=== PATIENT | male | born 1975 | race Caucasian/White ===

== ENCOUNTER 2024-04-30 18:00 | Emergency (ER) | payer OTHER, SELFPAY ==
--- NOTE | ~2024-04-30 | XR_ITS ---
XR chest 2V DATE: 04/30/2024 18:52 INDICATION: Syncopal episode TECHNIQUE: PA and lateral chest COMPARISON: None FINDINGS: Normal heart size. No hilar or mediastinal enlargement is evident. There is mild right basilar infiltrate or atelectasis. The lungs otherwise are hyperinflated but merrill r of infiltrate or consolidation. No pleural effusion or pulmonary vascular congestion or pneumothorax is detected. IMPRESSION: Mild right basilar infiltrate or atelectasis Moderate bilateral hyperinflation suggesting obstructive airways disease Reviewed, dictated and finalized at location A. ENTARY SECRETARY
[2024-04-30 18:15] VITALS: BP 120/68; PULSE 55; RESP 13; TEMP 36.3; O2SAT 96
--- NOTE | 2024-04-30 18:27 | ECG_ITS ---
Rate 58 NM 159 QRSd 122 QT 428 QTc 422 P 144 QRS 68 T 74 Severity No Severity Defined SINUS BRADYCARDIA MODERATE INTRAVENTRICULAR CONDUCTION DELAY [110+ ms QRS DURATION] ABNORMAL RHYTHM ECG Compared to ECG 04/30/2024 15:41:04 Bradycardia, nonsinus now present Intraventricular conduction delay now present Atrial fibrillation no longer present Right bundle-branch block no longer present Electronically Signed On 05-01-2024 12:45:48 GEOGRAPHIC INFORMATION SCIENTIST by Ehsan LEA
[2024-04-30 18:36] LABS: Basophils Absolute Auto 0.1 K/mm3 (0.0-0.1); Eosinophils Absolute Auto 0.2 K/mm3 (0-0.3); Eosinophils Percent Auto 1.9 % (0-4.4); Hematocrit 43.8 % (42.0-52.0); Immature Granulocyte Absolute 0.06 K/mm3 (0.00-0.031); Immature Granulocyte Percent A 0.6 % (0-0.5); Lymphocytes Absolute Auto 2.69 K/mm3 (0.9-3.2); Lymphocytes Percent Auto 28.8 % (18.3-44.2); Mean Corpuscular HGB Conc 34.2 g/dl (32-36); Mean Corpuscular Hemoglobin 31.1 pg (26-34); Mean Corpuscular Volume 90.9 fl (80-100); Monocytes Absolute Auto 0.7 K/mm3 (0.1-0.6); Monocytes Percent Auto 7.2 % (2.6-8.5); Neutrophils Absolute Auto 5.7 K/mm3 (1.3-6.7); Neutrophils Percent Auto 60.5 % (45.5-73.1); Platelet Count Result 272 k/mm3 (150-375); Red Blood Count 4.82 M/mm3 (4.6-6.20); Red Cell Distribution Width 12.6 % (11.5-14.5); White Blood Count 9.3 K/mm3 (4.5-10.0)
[2024-04-30 18:46] LABS: Alanine Aminotransferase 22 U/L (6-50); Albumin Level 4.5 g/dL (3.5-5.1); Alkaline Phosphatase 62 U/L (38-126); Anion Gap 9 mmol/L (4-12); Aspartate Amino Transferase 23 U/L (17-59); Bilirubin,Total 0.6 mg/dL (0.2-1.3); Blood Urea Nitrogen 13 mg/dL (9-20); Carbon Dioxide 25 mmol/L (22-30); Chloride 103 mmol/L (98-107); Estimated CRCL calculation 111 ml/min; Estimated Glomerular Filt Rate > 60; Glucose 103 mg/dL (65-110); Potassium 3.4 mmol/L (3.4-5.0); Sodium 137 mmol/L (137-145)
--- NOTE | 2024-04-30 21:55 | ECG_ITS ---
Test Date: 2024-04-30 22:55:48 Measurements Intervals [place] Rate: 56 P: 69 SD: 170 QRS: 38 QRSD: 114 T: 56 QT: 428 QTc: 416 Interpretive Statements SINUS BRADYCARDIA MODERATE INTRAVENTRICULAR CONDUCTION DELAY [110+ ms QRS DURATION] No previous ECG available for comparison Electronically Signed On 05-01-2024 12:49:47 WARDROBE ATTENDANT by Ehsan Mckeon M.D.
[2024-04-30 22:11] VITALS: BP 145/75; PULSE 58; RESP 17; O2SAT 95
--- NOTE | 2024-04-30 22:13 | PC.NURSE ---
Patient states he feels much better upon assessment by this RN and ERP in room at this time. Patient denies any cp or sob.
[2024-04-30 22:27] LABS: NT Pro B Type Natriuretic Pept < 20 pg/mL (19.9-100); Troponin I < 0.012 ng/mL (0.000-0.034)
--- NOTE | 2024-04-30 22:35 | ED_ITS ---
HPI - General Adult General Chief complaint: Syncope Stated complaint: syncope Time Seen by Provider: 04/30/24 21:57 History of Present Illness HPI narrative: This is a 49-year-old male presenting after syncopal event. Patient was at a [employer] where he had been drinking alcohol. He then received bad news in regards to a house he was been trying to sell. He then felt nauseous and lightheaded and pale. He got to go outside and passed out when he stood. Patient says he has felt similar when he passed out as a child. At this time the patient is asymptomatic. No chest pain difficulty breathing or palpitations. Related Data Allergies Allergy/AdvReac Type Severity Reaction Status Date / Time No Known Allergies Allergy Verified 04/30/24 22:15 Exam Narrative: APPEARANCE: No apparent distress. Head: atraumatic. EYES: EOMI, NOSE: Atraumatic NECK: Trachea midline RESPIRATORY: No increased rate of breathing clear to auscultation CARDIOVASCULAR: RRR, no peripheral edema ABDOMINAL: Non-distended MUSCULOSKELETAl: No obvious deformities NEURO: Alert. Moving 4/4 extremities SKIN:: Warm, dry. Normal color PSYCHIATRIC: Normal affect Course Vital Signs Vital signs: Vital Signs Temperature 97.4 F L 04/30/24 18:15 Pulse Rate 55 L 04/30/24 18:15 Respiratory Rate 13 04/30/24 18:15 Blood Pressure 120/68 04/30/24 18:15 Pulse Oximetry 96 04/30/24 18:15 Oxygen Delivery Room Air 04/30/24 18:15 Temperature 97.4 F L 04/30/24 18:15 Pulse Rate 58 L 04/30/24 22:11 Respiratory Rate 17 04/30/24 22:11 Blood Pressure 145/75 H 04/30/24 22:11 Pulse Oximetry 95 04/30/24 22:11 Oxygen Delivery Room Air 04/30/24 18:15 Medical Decision Making [facility] Narrative Medical decision making narrative: -Course: 49-year-old male presenting after syncopal event. Event is consistent with vasovagal syncope. No high risk findings on history/physical, laboratory studies EKG or chest x-ray. Patient discharged with primary care follow-up -DDX includes but is not limited to: Vasovagal syncope, cardiac syncope orthostatic sick -Independent interpretation of studies: Labs imaging/reviewed Independent EKG interpretation: Rhythm [sinus], Rate [56], [place] -[normal], [place] -[normal], QRS [narrow], QTC [normal], T waves -[negative for concerning inversions], ST Segments - [Negative for concerning elevations] Final interpretations: sinus bradycardia Vital Signs Vital Signs: Vital Signs Temperature 97.4 F L 04/30/24 18:15 Pulse Rate 55 L 04/30/24 18:15 Respiratory Rate 13 04/30/24 18:15 Blood Pressure 120/68 04/30/24 18:15 Pulse Oximetry 96 04/30/24 18:15 Oxygen Delivery Room Air 04/30/24 18:15 Temperature 97.4 F L 04/30/24 18:15 Pulse Rate 58 L 04/30/24 22:11 Respiratory Rate 17 04/30/24 22:11 Blood Pressure 145/75 H 04/30/24 22:11 Pulse Oximetry 95 04/30/24 22:11 Oxygen Delivery Room Air 04/30/24 18:15 Lab Data 04/30/24 18:28 04/30/24 18:28 Labs: Lab Results 04/30/24 Range/Units 18:28 WBC 9.3 (4.5-10.0) K/mm3 RBC 4.82 (4.6-6.20) M/mm3 Hgb 15.0 (14.0-18.0) g/dL Hct 43.8 (42.0-52.0) % MCV 90.9 (80-100) fl MCH 31.1 (26-34) pg MCHC 34.2 (32-36) g/dl RDW 12.6 (11.5-14.5) % Plt Count 272 (150-375) k/mm3 MPV 9.0 (7.4-10.4) fl Immature Gran % (Auto) 0.6 H (0-0.5) % Neut % (Auto) 60.5 (45.5-73.1) % Lymph % (Auto) 28.8 (18.3-44.2) % [place] % (Auto) 7.2 (2.6-8.5) % Eos % (Auto) 1.9 (0-4.4) % Baso % (Auto) 1.0 (0.2-1.2) % Lymph # (Auto) 2.69 (0.9-3.2) K/mm3 [place] # (Auto) 0.7 H (0.1-0.6) K/mm3 Eos # (Auto) 0.2 (0-0.3) K/mm3 Baso # (Auto) 0.1 (0.0-0.1) K/mm3 Abs Immat Gran (auto) 0.06 H (0.00-0.031) K/mm3 Absolute Neuts (auto) 5.7 (1.3-6.7) K/mm3 Absolute Nucleated RBC 0.000 (0.0-0.012) K/mm3 Nucleated RBC % 0.0 (0.0-0.2) % Sodium 137 (137-145) mmol/L Potassium 3.4 (3.4-5.0) mmol/L Chloride 103 (98-107) mmol/L Carbon Dioxide 25 (22-30) mmol/L Anion Gap 9 (4-12) mmol/L BUN 13 (9-20) mg/dL Creatinine 0.80 (0.7-1.3) mg/dL Estim Creat Clear Calc 111 ml/min Estimated GFR > 60 (59 - ) Glucose 103 (65-110) mg/dL Calcium 9.0 (8.4-10.2) mg/dL Total Bilirubin 0.6 (0.2-1.3) mg/dL AST 23 (17-59) U/L ALT 22 (6-50) U/L Alkaline Phosphatase 62 (38-126) U/L Troponin I < 0.012 (0.000-0.034) ng/mL NT-Pro-B Natriuret Pep < 20 (19.9-100) pg/mL Total Protein 7.0 (6.3-8.2) g/dL Albumin 4.5 (3.5-5.1) g/dL Discharge Plan Discharge Clinical Impression: Vasovagal syncope Patient Disposition: Home, Self-Care Condition: Stable Instructions: Antibiotic Form, Syncope (ED) Additional Instructions: I believe the fainted from a vasovagal syncope event. Please follow-up with your primary care physician for further management. If you feel like you are going to faint please lay on the ground to prevent falls. Your return at any time if you develop new or worsening symptoms. Follow-up/Referrals: Nicolle,Akbar Ward, [Primary Care Provider] -
[2024-04-30 23:08] VITALS: BP 162/85; PULSE 66; RESP 17; O2SAT 96
--- NOTE | 2024-05-01 09:15 | PCCARD ---
CHARTED EKG DONE AT 18:27 - COULD NOT FIND ON ANY OF THE EKG MACHINES AND IT IS NOT IN THE ECHART- CANCELLED ORDER
== END 2024-04-30 23:17 | disposition home or self-care (01) ==
PROVIDERS: Student in an Organized Health Care Education/Training Program; Emergency Provider Emergency Medicine; PCP Family Medicine
DX: R55 Syncope and collapse (principal); R00.1 Bradycardia, unspecified
CPT/HCPCS: 36415; 71046; 80053; 83880; 84484; 85025; 93005; 99284